=== PATIENT | male | born 1980 | race Hispanic/Latino ===

== ENCOUNTER 2018-12-16 02:49 | Emergency (ER) | payer OTHER ==
[~2018-12-16 02:49] MED LIST: ACET1TAB12 PO
== END 2018-12-16 04:47 | disposition home or self-care (01) ==
LOC: EDH 02:49
DX: S00.03XA Contusion of scalp, initial encounter (principal); H93.13 Tinnitus, bilateral; Z72.0 Tobacco use; X58.XXXA Exposure to other specified factors, initial encounter; Y93.89 Activity, other specified; Y92.89 Other specified places as the place of occurrence of the external cause; Y99.8 Other external cause status
CPT/HCPCS: 99281